=== PATIENT | female | born 1990 | race Caucasian/White ===

== ENCOUNTER 2018-10-18 06:10 | Inpatient (IN) ==
[2018-10-18] MEDS ORDERED: ONDANSETRON 4 MG/2 ML VIAL IV PRN (06:59)
[2018-10-18] MEDS ORDERED: BUTORPHANOL 2 MG/ML VIAL IV PRN ×2 (06:59→22:17)
[2018-10-18 07:22] LABS: Basophils % 0.3 % (0.0-0.8); Eosinophils % 0.4 % (0.00-10.9); Hematocrit 38.6 VOL% (35.7-47.0); Hemoglobin 12.3 GM/DL (12.0-16.0); Immature Granulocytes % 0.9 %; Immature Granulocytes Absolute 0.08 #; Lymphocytes % 21.7 % (21.3-54.2); Mean Corpuscular HGB Conc 31.9 GM/DL (32-36); Mean Corpuscular Volume 81.6 FL (87-102); Monocytes % 7.6 % (1.7-12.7); Neutrophils % 69.1 % (38.7-73.9); Platelet Count 218 T/CUMM (130-400); Red Blood Count 4.73 MC/CUMM (3.8-5.5); Red Cell Distribution Width 13.9 % (9.3-17.3); White Blood Count 9.3 T/CUMM (4-12)
[2018-10-18 07:31] LABS: INR 0.8; PT Patient Result 9.2 SECS; Partial Thromboplastin Time 25.3 SECS (0-40)
[2018-10-18 07:57] LABS: Alanine Aminotransferase 19 U/L (13-56); Albumin 2.3 G/DL (3.4-5.0); Alkaline Phosphatase 138 U/L (45-117); Aspartate Amino Transferase 15 U/L (0-37); Bilirubin,Total < 0.39 MG/DL (0.2-1.0); Blood Urea Nitrogen 11 MG/DL (7-18); Calcium 9.3 MG/DL (8.5-10.1); Glucose 103 MG/DL (74-106); Osmolality,Calculated 271.8 MOS/KG (273-304); Total Protein 6.3 G/DL (6.4-8.3); Uric Acid 3.7 MG/DL (2.6-6.0)
[2018-10-18] MEDS ORDERED: DINOPROSTONE VAG GEL 10 MG SYRINGE VAG ONE (14:52)
[2018-10-18] MEDS ORDERED: hydrOXYzine HCL 25 MG/1 ML VIAL IM PRN (21:36)
[2018-10-18] MEDS ORDERED: NALOXONE 0.4 MG/ML VIAL IV PRN (21:36)
[2018-10-18] MEDS: LACTATED RINGERS 1,000 ML IV SCH ×2 (21:36→22:40)
[2018-10-18] MEDS ORDERED: diphenhydrAMINE 50 MG/1 ML VIAL IV PRN ×2 (21:36)
[2018-10-18] MEDS ORDERED: ePHEDrine 50 MG/ML AMP IV PRN (21:36)
[2018-10-18] MEDS ORDERED: LACTATED RINGERS 250 ML IV PRN (21:36)
[2018-10-18] MEDS ORDERED: CITRIC ACID/SODIUM CITRATE 30 ML UDCUP PO ONE (21:38)
[2018-10-18] MEDS ORDERED: FAMOTIDINE 20 MG/2 ML VIAL IV ONE (21:38)
[2018-10-18] MEDS ORDERED: fentaNYL 2 MCG/ROPIV 0.2% EPID 100 ML EPIDURAL SCH (22:00)
[2018-10-18] MEDS ORDERED: hydrALAZINE 20 MG/1 ML VIAL IV PRN (22:01)
[2018-10-18] MEDS ORDERED: BUTORPHANOL 1 MG/ML VIAL IV PRN (22:30)
[2018-10-19 00:22] LABS: Apearance,Urine CLEAR (Clear); Bacteria,Urine Occasional /HPF (Few); Bilirubin,Urine Negative (Negative); Blood, Urine Negative (Negative); Glucose,Urine (UA) Negative (Negative); Ketones,Urine 5 mg/dL (Negative); Mucus,Urine Occasional /LPF (Occasional); Nitrite,Urine Negative (Negative); Protein,Urine Negative; RBC,Urine 1 /HPF (0-4); Squamous Epithelial Cell,Urine Occasional /HPF (0-10); Urine Color Yellow (Yellow); Urine Urobilinogen < 2.0 EU/DL (0.2-1.0); WBC,Urine 1 /HPF (0-6)
[2018-10-19] MEDS: OXYTOCIN/LR 20 UNIT/1,000 ML BAG IV SCH (02:18)
[2018-10-19] MEDS: LACTATED RINGERS 1,000 ML IV SCH ×2 (03:26→20:04)
[2018-10-19] MEDS ORDERED: ceFAZolin 3,000 MG in SYRINGE 1 EACH IV ONE (09:42)
[2018-10-19] MEDS ORDERED: OXYTOCIN/LR 20 UNIT/1,000 ML BAG IV ONE ×2 (11:11→13:19)
[2018-10-19] MEDS ORDERED: miSOPROStol 200 MCG TABLET ONE (11:11)
[2018-10-19] MEDS ORDERED: CARBOPROST TROMETHAMINE 250 MCG/ML AMP IM ONE (11:11)
[2018-10-19] MEDS ORDERED: METHYLERGONOVINE 0.2 MG/1 ML AMP ONE (11:11)
[2018-10-19] MEDS ORDERED: TRANEXAMIC ACID 1,000 MG/10 ML VIAL ONE (11:11)
[2018-10-19] MEDS ORDERED: METHYLERGONOVINE 0.2 MG/1 ML AMP IM ONE (12:47)
[2018-10-19] MEDS ORDERED: DEXAMETHASONE 4 MG/1 ML VIAL ONE (12:53)
[2018-10-19] MEDS ORDERED: BUPIVACAINE 0.5% 50 ML VIAL ONE (12:53)
[2018-10-19] MEDS ORDERED: ACETAMINOPHEN 325 MG TABLET PO PRN (13:19)
[2018-10-19] MEDS ORDERED: ONDANSETRON 4 MG/2 ML VIAL IV PRN (13:19)
[2018-10-19] MEDS ORDERED: SODIUM CHLORIDE 0.9% 100 ML IV ONE (13:47)
[2018-10-19] MEDS ORDERED: LIDOCAINE MPF 2% /EPI 20 ML VIAL ONE (13:47)
[2018-10-19] MEDS ORDERED: PHENYLEPHRINE 1 MG/10 ML SYRINGE IV ONE (13:47)
[2018-10-19] MEDS ORDERED: RHO(D) IMMUNE GLOBULIN 300 MCG SYRINGE IM ONE (14:00)
[2018-10-19] MEDS ORDERED: MEPERIDINE 25 MG/1 ML VIAL IV ONE (14:48)
[2018-10-19] MEDS ORDERED: ACETAMINOPHEN 500 MG TABLET PO PRN (15:23)
[2018-10-19] MEDS: hydroCHLOROthiazide 25 MG TABLET PO SCH (16:16)
[2018-10-19 19:51] LABS: Basophils % 0.2 % (0.0-0.8); Hematocrit 32.7 VOL% (35.7-47.0); Hemoglobin 10.4 GM/DL (12.0-16.0); Immature Granulocytes % 0.7 %; Immature Granulocytes Absolute 0.12 #; Lymphocytes % 5.7 % (21.3-54.2); Mean Corpuscular HGB Conc 31.8 GM/DL (32-36); Mean Corpuscular Volume 81.5 FL (87-102); Mean Platelet Volume 11.1 FL (9.6-12.0); Neutrophils % 90.4 % (38.7-73.9); Platelet Count 194 T/CUMM (130-400); Red Blood Count 4.01 MC/CUMM (3.8-5.5); Red Cell Distribution Width 13.7 % (9.3-17.3); White Blood Count 17.5 T/CUMM (4-12)
[2018-10-19] MEDS: ceFAZolin 1,000 MG in SYRINGE 1 EACH IV SCH (19:51)
[2018-10-19] MEDS: oxyCODONE/ACETAMINOPHEN 5-325 MG TABLET PO PRN (22:35)
[2018-10-19] MEDS: IBUPROFEN 800 MG TABLET PO PRN (22:35)
[2018-10-20] MEDS: ceFAZolin 1,000 MG in SYRINGE 1 EACH IV SCH (04:11)
[2018-10-20] MEDS: oxyCODONE/ACETAMINOPHEN 5-325 MG TABLET PO PRN ×5 (04:12→21:10)
[2018-10-20] MEDS: OXYTOCIN/LR 20 UNIT/1,000 ML BAG IV SCH (04:14)
[2018-10-20] MEDS: LACTATED RINGERS 1,000 ML IV SCH ×7 (04:14→22:22)
[2018-10-20] MEDS: DOCUSATE SODIUM 100 MG CAPSULE PO SCH ×3 (04:14→21:09)
[2018-10-20 05:58] LABS: Basophils % 0.3 % (0.0-0.8); Eosinophils % 0.1 % (0.00-10.9); Hematocrit 29.7 VOL% (35.7-47.0); Hemoglobin 9.3 GM/DL (12.0-16.0); Immature Granulocytes % 0.8 %; Lymphocytes # 2.2 10*3/uL (1.4-4.0); Mean Corpuscular HGB Conc 31.3 GM/DL (32-36); Mean Corpuscular Volume 82.7 FL (87-102); Mean Platelet Volume 11.4 FL (9.6-12.0); Monocytes % 6.7 % (1.7-12.7); Neutrophils % 74.1 % (38.7-73.9); Platelet Count 191 T/CUMM (130-400); Red Blood Count 3.59 MC/CUMM (3.8-5.5); Red Cell Distribution Width 13.9 % (9.3-17.3); White Blood Count 12.3 T/CUMM (4-12)
[2018-10-20] MEDS: IBUPROFEN 800 MG TABLET PO PRN ×2 (06:20→14:50)
[2018-10-20] MEDS: MAGNESIUM HYDROXIDE SUSP 30 ML UDCUP PO PRN ×2 (08:01→21:09)
[2018-10-20] MEDS: hydroCHLOROthiazide 25 MG TABLET PO SCH (08:01)
[2018-10-20] MEDS: MULTIVITAMIN (PRENATAL) TABLET PO SCH (08:02)
[2018-10-20] MEDS: FERROUS SULFATE 325 MG TABLET PO SCH ×2 (08:02→21:09)
[2018-10-20] MEDS: SIMETHICONE CHEW 80 MG TABLET PO PRN (08:02)
[2018-10-21] MEDS: IBUPROFEN 800 MG TABLET PO PRN ×4 (00:05→22:34)
[2018-10-21] MEDS: oxyCODONE/ACETAMINOPHEN 5-325 MG TABLET PO PRN ×4 (03:42→19:57)
[2018-10-21] MEDS: DOCUSATE SODIUM 100 MG CAPSULE PO SCH ×3 (08:24→21:40)
[2018-10-21] MEDS: SIMETHICONE CHEW 80 MG TABLET PO PRN (08:24)
[2018-10-21] MEDS: MULTIVITAMIN (PRENATAL) TABLET PO SCH (08:24)
[2018-10-21] MEDS: hydroCHLOROthiazide 25 MG TABLET PO SCH (08:24)
[2018-10-21] MEDS: MAGNESIUM HYDROXIDE SUSP 30 ML UDCUP PO PRN ×2 (08:24→19:53)
[2018-10-21] MEDS: FERROUS SULFATE 325 MG TABLET PO SCH ×3 (08:24→21:41)
[2018-10-21] MEDS ORDERED: BISACODYL 10 MG SUPP RECTAL PRN (08:56)
[2018-10-22] MEDS: oxyCODONE/ACETAMINOPHEN 5-325 MG TABLET PO PRN ×2 (01:52→08:20)
[2018-10-22] MEDS: IBUPROFEN 800 MG TABLET PO PRN (06:30)
[2018-10-22] MEDS: hydroCHLOROthiazide 25 MG TABLET PO SCH (08:20)
[2018-10-22] MEDS: DOCUSATE SODIUM 100 MG CAPSULE PO SCH (08:20)
[2018-10-22] MEDS: MULTIVITAMIN (PRENATAL) TABLET PO SCH (08:20)
[2018-10-22] MEDS: FERROUS SULFATE 325 MG TABLET PO SCH (09:00)
[2018-10-22 09:05] VITALS: BP 135/69
== END 2018-10-22 12:20 | disposition home or self-care (01) | DRG 788 ==
LOC: N.LDOUT 06:10 → N.LD 06:13 → N.OB 10-19 17:22
PROVIDERS: ADMIT Obstetrics & Gynecology; ATTEND Obstetrics & Gynecology
PROC: LDCSECT (ICD-10-PCS; 2018-10-19 12:00)

== ENCOUNTER 2020-10-07 10:52 | Inpatient (IN) ==
[2020-10-07] MEDS ORDERED: BUTORPHANOL 2 MG/ML VIAL IV ONE (12:14)
[2020-10-07] MEDS ORDERED: LACTATED RINGERS 1,000 ML IV ONE ×2 (12:14→18:12)
[2020-10-07] MEDS ORDERED: BETAMETH SODIUM PHOS/ACETATE 30 MG/5 ML VIAL IM ONE (13:38)
[2020-10-07] MEDS ORDERED: BETAMETH SODIUM PHOS/ACETATE 30 MG/5 ML VIAL ONE (13:40)
[2020-10-07] MEDS ORDERED: ONDANSETRON 4 MG/2 ML VIAL IV PRN ×2 (15:26→18:59)
[2020-10-07] MEDS ORDERED: ceFAZolin 3,000 MG in SYRINGE 1 EACH IV ONE (15:28)
[2020-10-07] MEDS ORDERED: CITRIC ACID/SODIUM CITRATE 30 ML UDCUP PO ONE (15:28)
[2020-10-07 15:49] LABS: Basophils % 0.2 % (0.0-0.8); Eosinophils % 0.4 % (0.00-10.9); Hematocrit 33.4 VOL% (35.7-47.0); Hemoglobin 11.1 GM/DL (12.0-16.0); Immature Granulocytes % 0.8 %; Immature Granulocytes Absolute 0.09 #; Lymphocytes # 1.5 10*3/uL (1.4-4.0); Lymphocytes % 13.1 % (21.3-54.2); Mean Corpuscular HGB Conc 33.2 GM/DL (32-36); Mean Corpuscular Volume 79.9 FL (87-102); Neutrophils % 81.5 % (38.7-73.9); Platelet Count 228 T/CUMM (130-400); Red Blood Count 4.18 MC/CUMM (3.8-5.5); Red Cell Distribution Width 13.6 % (9.3-17.3); White Blood Count 11.1 T/CUMM (4-12)
[2020-10-07 16:04] LABS: Albumin 2.5 G/DL (3.4-5.0); Bilirubin,Total 0.4 MG/DL (0.2-1.0); Osmolality,Calculated 270.7 MOS/KG (273-304); Potassium 3.6 MMOL/L (3.5-5.1); Total Protein 6.5 G/DL (6.4-8.2)
[2020-10-07] MEDS ORDERED: FAMOTIDINE 20 MG/2 ML VIAL IV ONE (16:41)
[2020-10-07] MEDS ORDERED: SODIUM CHLORIDE 0.9% 100 ML IV ONE (17:55)
[2020-10-07] MEDS ORDERED: PHENYLEPHRINE 10 MG/1 ML VIAL IV ONE (17:55)
[2020-10-07] MEDS ORDERED: ONDANSETRON 4 MG/2 ML VIAL ONE (17:55)
[2020-10-07] MEDS ORDERED: miSOPROStoL 200 MCG TABLET ONE (17:59)
[2020-10-07] MEDS ORDERED: BUPIVACAINE SPINAL 0.75% 2 ML AMP SPINAL ONE (17:59)
[2020-10-07] MEDS ORDERED: TRANEXAMIC ACID 1,000 MG/10 ML VIAL ONE (17:59)
[2020-10-07] MEDS ORDERED: METHYLERGONOVINE 0.2 MG/1 ML AMP ONE (18:00)
[2020-10-07] MEDS ORDERED: CARBOPROST TROMETHAMINE 250 MCG/ML AMP IM ONE (18:00)
[2020-10-07] MEDS ORDERED: OXYTOCIN/LR 20 UNIT/1,000 ML BAG IV ONE ×2 (18:00→18:59)
[2020-10-07] MEDS ORDERED: MIDAZOLAM 2 MG/2 ML VIAL ONE ×2 (18:33→18:42)
[2020-10-07 18:47] LABS: Cord Arterial Blood HCO3 23.6 MMOL/L
[2020-10-07 18:50] LABS: Cord Venous Blood HCO3 24.2 MMOL/L; Cord Venous Blood PCO2 41.3 MMHG; Cord Venous Blood PO2 36.3
[2020-10-07] MEDS ORDERED: RHO(D) IMMUNE GLOBULIN 300 MCG SYRINGE IM ONE (18:59)
[2020-10-07] MEDS ORDERED: MAGNESIUM HYDROXIDE SUSP 30 ML UDCUP PO PRN (18:59)
[2020-10-07] MEDS ORDERED: SIMETHICONE CHEW 80 MG TABLET PO PRN (18:59)
[2020-10-07] MEDS ORDERED: ACETAMINOPHEN 325 MG TABLET PO PRN (18:59)
[2020-10-07] MEDS ORDERED: IBUPROFEN 800 MG TABLET PO PRN (18:59)
[2020-10-07] MEDS ORDERED: LACTATED RINGERS 1,000 ML IV SCH (19:00)
[2020-10-07 19:28] LABS: Bilirubin,Urine Negative (Negative); Blood, Urine Negative (Negative); Glucose,Urine (UA) Negative (Negative); Ketones,Urine 20 mg/dL (Negative); Mucus,Urine Occasional /LPF (Occasional); Nitrite,Urine Negative (Negative); Protein,Urine Negative; RBC,Urine <1 /HPF (0-4); Urine Appearance CLEAR (Clear); Urine Color Straw (Yellow); Urine Specific Gravity 1.005 (1.001-1.035); Urine Urobilinogen < 2.0 EU/DL (0.2-1.0)
[2020-10-07] MEDS: oxyCODONE/ACETAMINOPHEN 5-325 MG TABLET PO PRN (20:48)
[2020-10-07] MEDS: KETOROLAC 30 MG/1 ML VIAL IV SCH (20:50)
[2020-10-07] MEDS ORDERED: LABETALOL 100 MG TABLET PO PRN (20:51)
[2020-10-07] MEDS: DOCUSATE SODIUM 100 MG CAPSULE PO SCH (22:15)
[2020-10-08] MEDS: oxyCODONE/ACETAMINOPHEN 5-325 MG TABLET PO PRN ×3 (00:13→16:09)
[2020-10-08] MEDS: KETOROLAC 30 MG/1 ML VIAL IV SCH ×3 (02:44→14:27)
[2020-10-08] MEDS: ceFAZolin 2,000 MG/50 ML DUPLEX IV SCH ×2 (02:48→10:01)
[2020-10-08 05:45] LABS: Basophils % 0.1 % (0.0-0.8); Hematocrit 28.5 VOL% (35.7-47.0); Hemoglobin 9.2 GM/DL (12.0-16.0); Immature Granulocytes % 0.6 %; Immature Granulocytes Absolute 0.09 #; Lymphocytes # 1.5 10*3/uL (1.4-4.0); Lymphocytes % 10.6 % (21.3-54.2); Mean Corpuscular HGB Conc 32.3 GM/DL (32-36); Mean Corpuscular Volume 79.8 FL (87-102); Mean Platelet Volume 10.1 FL (9.6-12.0); Monocytes % 4.8 % (1.7-12.7); Neutrophils % 83.9 % (38.7-73.9); Platelet Count 220 T/CUMM (130-400); Red Blood Count 3.57 MC/CUMM (3.8-5.5); Red Cell Distribution Width 13.4 % (9.3-17.3); White Blood Count 14.2 T/CUMM (4-12)
[2020-10-08] MEDS: DOCUSATE SODIUM 100 MG CAPSULE PO SCH ×2 (08:29→22:00)
[2020-10-08] MEDS: MULTIVITAMIN (PRENATAL) TABLET PO SCH (08:29)
[2020-10-09] MEDS: oxyCODONE/ACETAMINOPHEN 5-325 MG TABLET PO PRN (00:33)
[2020-10-09 08:34] VITALS: BP 127/69
[2020-10-09] MEDS: MULTIVITAMIN (PRENATAL) TABLET PO SCH (08:57)
[2020-10-09] MEDS: DOCUSATE SODIUM 100 MG CAPSULE PO SCH (08:58)
[2020-10-09] MEDS ORDERED: FERROUS SULFATE 325 MG TABLET PO SCH (09:00)
== END 2020-10-09 16:50 | disposition home or self-care (01) | DRG 784 ==
LOC: N.LDOUT 10:52 → N.LD 10:53 → N.OB 21:50
PROVIDERS: ADMIT Obstetrics & Gynecology; ATTEND Obstetrics & Gynecology